=== PATIENT | male | born 1965 | race Caucasian/White ===

== ENCOUNTER 2020-11-29 21:05 | Emergency (ER) | payer BC, OTHER ==
[~2020-11-29] VITALS: Ht 170.2 cm; Wt 152.9 kg
[~2020-11-29 21:05] MED LIST: BUPR300T49 PO; HYDR25TA6 PO; LEVO50TA5 PO; LOSA100T14 PO; POTA20TA14 PO; PRAV10TA2 PO; QUET25TA7 PO
--- NOTE | 2020-11-29 21:38 | NUR ---
PT STATES HE HAS BEEN FEELING FATIGUED SINCE WEDNESDAY, HAS BEEN HAVING A FEVER, SOB, DIARRHEA, AND HEAD ACHES, PT PUT ON 2 LPM OF OXYGEN, PAINTER ASSISTANT AND PULSE OX, ALL NEEDS IN REACH, CALL LIGHT IN REACH, AT BEDSIDE
[2020-11-29 21:41] LABS: BASOPHILS % (AUTO) 1 % (0-1); EOSINOPHILS % (AUTO) 1 % (1-7); LYMPHOCYTES % (AUTO) 11 % (22-44); MEAN CORPUSCULAR HEMOGLOBIN 29.1 pg (27.5-34.5); MEAN CORPUSCULAR HGB CONC 34.5 g/dL (33.2-36.2); MEAN PLATELET VOLUME 7.9 fL (7.4-10.4); MONOCYTES % (AUTO) 12 % (2-9); NEUTROPHILS % (AUTO) 75 % (42-75); PLATELET COUNT 144 x10^3/uL (130-400); RED BLOOD COUNT 5.73 x10^6/uL (4.38-5.82); RED CELL DISTRIBUTION WIDTH 17.3 % (9.4-14.8)
[2020-11-29 21:42] LABS: ALANINE AMINOTRANSFERASE 54 U/L (12-78); ALBUMIN 3.6 g/dL (3.4-5.0); ANION GAP 5 mmol/L (5-15); CALCIUM 9.5 mg/dL (8.5-10.1); CHLORIDE 107 mmol/L (98-107); CREATININE 1.16 mg/dL (0.7-1.3); MD NO
[2020-11-29 21:46] LABS: ALKALINE PHOSPHATASE 99 U/L (45-117); BILIRUBIN,TOTAL 0.7 mg/dL (0.2-1.0); TOTAL PROTEIN 7.8 g/dL (6.4-8.2); TROPONIN I < 0.015 ng/mL (0.000-0.045)
[2020-11-29] MEDS ORDERED: PROCHLORPERAZINE 5 MG/ML, 2ML ONE (22:30)
[2020-11-29] MEDS ORDERED: SODIUM CHLORIDE 0.9% 1,000ML IVBOLUS ONE (22:30)
[2020-11-29] MEDS ORDERED: KETOROLAC 30 MG/1 ML ONE (22:30)
[2020-11-29] MEDS ORDERED: KETOROLAC 30 MG/1 ML IVPush ONE (22:30)
[2020-11-29] MEDS ORDERED: PROCHLORPERAZINE 5 MG/ML, 2ML IVPush ONE (22:30)
[2020-11-30 00:29] LABS: MICROSCOPIC AUTO
[2020-11-30 01:09] VITALS: BP 153/63
== END 2020-11-30 01:48 | disposition home or self-care (01) ==
LOC: ED 21:35
DX: J18.9 Pneumonia, unspecified organism (principal); Z20.822 Contact with and (suspected) exposure to COVID-19; R50.9 Fever, unspecified; M79.10 Myalgia, unspecified site; R19.7 Diarrhea, unspecified; R06.00 Dyspnea, unspecified; R00.0 Tachycardia, unspecified; I10 Essential (primary) hypertension; E11.9 Type 2 diabetes mellitus without complications; E78.00 Pure hypercholesterolemia, unspecified
CPT/HCPCS: 36415; 71045; 80053; 81001; 83880; 84484; 85025; 87086; 93005; 96361; 96374; 96375; 99285; J0780; J1885; J7030; U0003; U0005

== ENCOUNTER 2020-12-03 11:32 | Inpatient (IN) | payer OTHER ==
[~2020-12-03] VITALS: Ht 172.7 cm; Wt 161.9 kg
--- NOTE | 2020-12-03 12:01 | NUR ---
DR ANDERSON AT BEDSIDE TO CHIVO PT. CONTACT WITH PT, 55 YR OLD MALE HERE WITH C/O "WE WERE HERE EMI NIGHT, HE WAS HAVING SOB, CONGESTION AND IT WAS UNCOMFORTABLE TO BREATH. HE SAYS IT HURTS RIGHT ACROSS HERE (UPPER ABD) HAS HAD DIARRHEA FOR A WEEK AND SOME NAUSEA. HIS TEMP HAS GONE UP" LAST HAD IBUPROFEN (600MG) AT AROUND 0700 THIS AM. PT MARCIE AT BEDSIDE. PT ON PULSE OX MONITOR AND AUTO BP CUFF.
[2020-12-03 12:22] LABS: MICROSCOPIC AUTO
[2020-12-03] MEDS ORDERED: SODIUM CHLORIDE 0.9% 1,000ML IVBOLUS ONE (12:30)
[2020-12-03] MEDS ORDERED: ACETAMINOPHEN 500 MG TABLET PO ONE (12:30)
[2020-12-03 12:37] LABS: MEAN CORPUSCULAR HEMOGLOBIN 28.9 pg (27.5-34.5); MEAN CORPUSCULAR HGB CONC 34.7 g/dL (33.2-36.2); MEAN PLATELET VOLUME 7.9 fL (7.4-10.4); PLATELET COUNT 74 x10^3/uL (130-400); RED BLOOD COUNT 5.15 x10^6/uL (4.38-5.82); RED CELL DISTRIBUTION WIDTH 17.6 % (9.4-14.8)
[2020-12-03] MEDS ORDERED: ACETAMINOPHEN 500 MG TABLET ONE (12:39)
[2020-12-03 12:49] LABS: ALANINE AMINOTRANSFERASE 63 U/L (12-78); ANION GAP 9 mmol/L (5-15); CALCIUM 9.4 mg/dL (8.5-10.1); CHLORIDE 103 mmol/L (98-107)
[2020-12-03 12:52] LABS: ALKALINE PHOSPHATASE 96 U/L (45-117); BILIRUBIN,TOTAL 0.9 mg/dL (0.2-1.0); TOTAL PROTEIN 6.8 g/dL (6.4-8.2)
--- NOTE | 2020-12-03 12:53 | NUR ---
REPORT TO CAMACHO ORTA
[2020-12-03] MEDS ORDERED: SODIUM CHLORIDE FLUSH 10ML SYR IVF ONE (13:00)
--- NOTE | 2020-12-03 13:22 | NUR ---
PT STATES HE'S DOING OKAY, STATES HE USUALLY FEELS BETTER AFTER HE GETS IVF. STATES HE "HASN'T BEEN ABLE TO KEEP ANYTHING DOWN". BOLUS INFUSING NOW. SITTING AT EDGE OF BED FOR COMFORT. AT BS. UPDATED PT ON POC.
[2020-12-03 13:40] LABS: ANISOCYTOSIS 1+; BAND#(MANUAL) 0.99 x10^3/uL; BANDS%(MANUAL) 13 % (0-7); EOS#(MANUAL) 0.08 x10^3/uL (0.0-0.4); EOS% (MANUAL) 1 % (1-7); LYMPH#(MANUAL) 1.29 x10^3/uL (1-3.4); LYMPHS% (MANUAL) 17 % (22-44); METAMYELOCYTES% (MANUAL) 4 % (0-1); MONOS#(MANUAL) 0.99 x10^3/uL (0.3-2.7); MONOS% (MANUAL) 13 % (2-9); SEG#(MANUAL) 3.95 x10^3/uL (1.8-6.8); SEGS% (MANUAL) 52 % (42-75)
[2020-12-03 13:41] LABS: POLYCHROMASIA 1+
[2020-12-03 13:42] LABS: <PLATELET ESTIMATE> DECREASED; <PLT MORPHOLOGY> NORMAL PLT MORPH
--- NOTE | 2020-12-03 14:08 | NUR ---
SPO2 DROPS TO 88% WHEN PT RESTING ON BACK IN [facility]. STATES PT HAS SLEEP APNEA. O2 APPLIED AT 2L NC, SPO2 IMPROVED TO 96%.
--- NOTE | 2020-12-03 14:48 | NUR ---
PT TO CT VIA [facility] NOW.
[2020-12-03] MEDS ORDERED: OMNIPAQUE 350 MG/ML, 100ML BOTTLE ONE (15:08)
--- NOTE | 2020-12-03 15:12 | NUR ---
PT RETURNS FROM CT.
--- NOTE | 2020-12-03 15:18 | NUR ---
ERP AT BS TO TALK TO PT ABOUT CTA RESULTS AND PLAN FOR ADMISSION.
[2020-12-03] MEDS ORDERED: TAMS-11 PO (15:38)
[2020-12-03] MEDS ORDERED: ESCI20TA8 PO (15:38)
[2020-12-03] MEDS ORDERED: BUSP5TAB2 PO (15:38)
[2020-12-03] MEDS ORDERED: MELA10TA PO (15:38)
[2020-12-03] MEDS ORDERED: EMPA1TAB15 PO (15:38)
[2020-12-03] MEDS ORDERED: SITA100T PO (15:38)
[2020-12-03] MEDS ORDERED: MULT-464 PO (15:38)
[2020-12-03] MEDS ORDERED: METH36TA19 PO ×2 (15:48→21:03)
--- NOTE | 2020-12-03 15:48 | NUR ---
PT MOVED TO CHAIR PER HIS REQUEST. SOB NOTED WHEN PT SPEAKING/MOVING AROUND. O2 IN PLACE AT 2L NC. ADMITTING MD AT NOW.
[2020-12-03] MEDS ORDERED: ENALAPRILAT 1.25 MG/ML, 2ML IVPush PRN (16:00)
[2020-12-03] MEDS ORDERED: ONDANSETRON 2MG/ML, 2ML IVPush PRN (16:00)
[2020-12-03] MEDS ORDERED: POLYETHYLENE GLYCOL 17 GM PACKET PO PRN (16:00)
[2020-12-03] MEDS ORDERED: GUAIFENESIN/DM 200-20MG, 10ML UDC PO PRN (16:00)
[2020-12-03] MEDS ORDERED: OXYcodone/APAP 5/325MG TABLET PO PRN (16:00)
[2020-12-03] MEDS ORDERED: CEFTRIAXONE 2 GM in DEXTROSE 5% 50 ML IVPB SCH (16:30)
--- NOTE | 2020-12-03 16:42 | NUR ---
CALLED DR. SANCHEZ TO ASK WHY BLOOD THINNERS HAVEN'T BEEN ORDERED. PER ADMITTING MD, WILL GET REPEAT PLT COUNT FIRST. LAB AT BS NOW.
[2020-12-03] MEDS ORDERED: HEPARIN 5,000 UNITS/ML, 1ML IV ONE (17:30)
[2020-12-03 17:41] LABS: HCT (SEDRATE) 43.6 % (39.2-51.8)
[2020-12-03] MEDS: LACTATED RINGERS 1,000 ML IV SCH (17:56)
[2020-12-03] MEDS: HEPARIN 25,000 UNITS/250ML PMX 250 ML IV PRN (18:38)
[2020-12-03 19:32] VITALS: BP 142/64
[2020-12-03] MEDS: MELATONIN 5 MG TABLET PO PRN (20:46)
[2020-12-03] MEDS: QUETIAPINE 25MG TABLET PO SCH (20:46)
[2020-12-03] MEDS ORDERED: BUPR-173 PO (21:01)
[2020-12-03] MEDS ORDERED: QUET100T4 PO (21:01)
[2020-12-03 21:24] LABS: MEAN CORPUSCULAR HEMOGLOBIN 28.9 pg (27.5-34.5); MEAN CORPUSCULAR HGB CONC 34.5 g/dL (33.2-36.2); MEAN PLATELET VOLUME 8.4 fL (7.4-10.4); PLATELET COUNT 69 x10^3/uL (130-400); RED BLOOD COUNT 4.91 x10^6/uL (4.38-5.82); RED CELL DISTRIBUTION WIDTH 17.7 % (9.4-14.8)
[2020-12-03 21:57] LABS: BASOPHILS % (AUTO) 1 % (0-1); EOSINOPHILS % (AUTO) 1 % (1-7); LYMPHOCYTES % (AUTO) 21 % (22-44); MONOCYTES % (AUTO) 10 % (2-9); NEUTROPHILS % (AUTO) 67 % (42-75)
[2020-12-04] MEDS: ACETAMINOPHEN 325 MG TABLET PO PRN ×3 (00:13→17:01)
[2020-12-04 00:56] VITALS: BP 151/89
[2020-12-04 01:09] LABS: MICROSCOPIC AUTO
[2020-12-04 01:18] LABS: MEAN CORPUSCULAR HEMOGLOBIN 28.6 pg (27.5-34.5); MEAN PLATELET VOLUME 8.1 fL (7.4-10.4); PLATELET COUNT 73 x10^3/uL (130-400); RED BLOOD COUNT 4.97 x10^6/uL (4.38-5.82); RED CELL DISTRIBUTION WIDTH 17.8 % (9.4-14.8)
[2020-12-04 01:40] LABS: ANISOCYTOSIS 1+; BAND#(MANUAL) 1.11 x10^3/uL; BANDS%(MANUAL) 17 % (0-7); EOS#(MANUAL) 0.26 x10^3/uL (0.0-0.4); EOS% (MANUAL) 4 % (1-7); LYMPHS% (MANUAL) 23 % (22-44); METAMYELOCYTES# (MANUAL) 0.33 x10^3/uL (0-0); METAMYELOCYTES% (MANUAL) 5 % (0-1); MONOS#(MANUAL) 0.72 x10^3/uL (0.3-2.7); MONOS% (MANUAL) 11 % (2-9); MYELOCYTES# (MANUAL) 0.13 x10^3/uL (0-0); MYELOCYTES% (MANUAL) 2 % (0-0); POLYCHROMASIA 1+; REACTIVE LYMPHS # (MANUAL) 0.13 x10^3/uL (0-0); REACTIVE LYMPHS % (MANUAL) 2 % (0-0); SEG#(MANUAL) 2.34 x10^3/uL (1.8-6.8); SEGS% (MANUAL) 36 % (42-75)
[2020-12-04 01:41] LABS: PMNS WITH VACUOLES 1+
[2020-12-04 01:42] LABS: TOXIC GRAN 1+
[2020-12-04 01:45] LABS: <PLATELET ESTIMATE> DECREASED; <PLT MORPHOLOGY> NORMAL PLT MORPH
[2020-12-04] MEDS: HEPARIN 5,000 UNITS/ML, 1ML IV PRN ×3 (02:34→17:00)
[2020-12-04] MEDS: LEVOTHYROXINE 50 MCG TABLET PO SCH (05:31)
[2020-12-04 06:00] LABS: MEAN CORPUSCULAR HEMOGLOBIN 28.9 pg (27.5-34.5); MEAN CORPUSCULAR HGB CONC 34.2 g/dL (33.2-36.2); MEAN PLATELET VOLUME 8.2 fL (7.4-10.4); PLATELET COUNT 67 x10^3/uL (130-400); RED BLOOD COUNT 4.83 x10^6/uL (4.38-5.82); RED CELL DISTRIBUTION WIDTH 17.6 % (9.4-14.8)
[2020-12-04 06:10] LABS: ALBUMIN 2.7 g/dL (3.4-5.0); ANION GAP 5 mmol/L (5-15); CALCIUM 8.7 mg/dL (8.5-10.1); CHLORIDE 104 mmol/L (98-107)
[2020-12-04 06:14] LABS: ALANINE AMINOTRANSFERASE 63 U/L (12-78); ALKALINE PHOSPHATASE 81 U/L (45-117); BILIRUBIN,TOTAL 0.6 mg/dL (0.2-1.0); CREATININE 0.76 mg/dL (0.7-1.3); TOTAL PROTEIN 6.3 g/dL (6.4-8.2)
[2020-12-04 06:40] LABS: ANISOCYTOSIS 1+; BAND#(MANUAL) 0.95 x10^3/uL; BANDS%(MANUAL) 14 % (0-7); EOS#(MANUAL) 0.07 x10^3/uL (0.0-0.4); EOS% (MANUAL) 1 % (1-7); LYMPH#(MANUAL) 1.36 x10^3/uL (1-3.4); LYMPHS% (MANUAL) 20 % (22-44); METAMYELOCYTES# (MANUAL) 0.14 x10^3/uL (0-0); METAMYELOCYTES% (MANUAL) 2 % (0-1); MONOS#(MANUAL) 0.61 x10^3/uL (0.3-2.7); MONOS% (MANUAL) 9 % (2-9); REACTIVE LYMPHS # (MANUAL) 0.07 x10^3/uL (0-0); REACTIVE LYMPHS % (MANUAL) 1 % (0-0); SEGS% (MANUAL) 53 % (42-75)
[2020-12-04 06:41] LABS: <PLATELET ESTIMATE> DECREASED; <PLT MORPHOLOGY> NORMAL PLT MORPH; POLYCHROMASIA 1+
[2020-12-04] MEDS ORDERED: PIPERACILLIN/TAZO 4.5 GM in DEXTROSE 5% 100 ML IVPB SCH (07:00)
[2020-12-04 07:18] VITALS: BP 159/93
[2020-12-04] MEDS: ESCITALOPRAM 10MG TABLET PO SCH (08:24)
[2020-12-04] MEDS: TAMSULOSIN 0.4 MG CAP.ER.24H PO SCH (08:24)
[2020-12-04] MEDS: BUSPIRONE 5 MG TABLET PO SCH (08:25)
[2020-12-04] MEDS: BUPROPION SR 100 MG TABLET PO SCH ×2 (08:47→20:56)
[2020-12-04] MEDS: LACTATED RINGERS 1,000 ML IV SCH (08:48)
[2020-12-04] MEDS ORDERED: BUPROPION SR 150 MG TABLET PO SCH (09:00)
[2020-12-04 09:14] LABS: BASOPHILS % (AUTO) 1 % (0-1); EOSINOPHILS % (AUTO) 1 % (1-7); LYMPHOCYTES % (AUTO) 19 % (22-44); MEAN CORPUSCULAR HEMOGLOBIN 28.5 pg (27.5-34.5); MEAN CORPUSCULAR HGB CONC 34.2 g/dL (33.2-36.2); MEAN PLATELET VOLUME 8.3 fL (7.4-10.4); MONOCYTES % (AUTO) 8 % (2-9); NEUTROPHILS % (AUTO) 72 % (42-75); PLATELET COUNT 71 x10^3/uL (130-400); RED BLOOD COUNT 4.86 x10^6/uL (4.38-5.82); RED CELL DISTRIBUTION WIDTH 17.6 % (9.4-14.8)
[2020-12-04] MEDS ORDERED: POTASSIUM CHLORIDE 20 MEQ TAB.ER.PRT PO ONE (10:00)
[2020-12-04 11:20] VITALS: BP 146/78
[2020-12-04] MEDS: METRONIDAZOLE PMX 500MG/100ML 100 ML IV SCH ×3 (11:21→23:49)
[2020-12-04] MEDS: K-PHOS NEUTRAL 250MG TAB PO SCH ×2 (11:22→20:56)
[2020-12-04] MEDS ORDERED: OMNIPAQUE 350 MG/ML, 150 ML BOTTLE ONE (12:34)
[2020-12-04] MEDS: HEPARIN 25,000 UNITS/250ML PMX 250 ML IV PRN (13:04)
[2020-12-04] MEDS: CEFEPIME 2 GM in DEXTROSE 5% 100 ML IV SCH ×2 (14:08→22:51)
[2020-12-04 14:15] VITALS: BP 142/106
[2020-12-04 16:14] LABS: BASOPHILS % (AUTO) 1 % (0-1); EOSINOPHILS % (AUTO) 1 % (1-7); LYMPHOCYTES % (AUTO) 20 % (22-44); MEAN CORPUSCULAR HEMOGLOBIN 28.6 pg (27.5-34.5); MEAN CORPUSCULAR HGB CONC 33.9 g/dL (33.2-36.2); MEAN PLATELET VOLUME 8.1 fL (7.4-10.4); MONOCYTES % (AUTO) 11 % (2-9); NEUTROPHILS % (AUTO) 67 % (42-75); PLATELET COUNT 68 x10^3/uL (130-400); RED BLOOD COUNT 4.81 x10^6/uL (4.38-5.82); RED CELL DISTRIBUTION WIDTH 17.4 % (9.4-14.8)
[2020-12-04 19:22] VITALS: BP 150/99
[2020-12-04] MEDS: QUETIAPINE 25MG TABLET PO SCH (20:56)
[2020-12-04] MEDS: MELATONIN 5 MG TABLET PO PRN (21:55)
[2020-12-04 23:28] LABS: MEAN CORPUSCULAR HEMOGLOBIN 28.9 pg (27.5-34.5); PLATELET COUNT 75 x10^3/uL (130-400); RED BLOOD COUNT 4.91 x10^6/uL (4.38-5.82); RED CELL DISTRIBUTION WIDTH 17.7 % (9.4-14.8)
[2020-12-05 00:10] LABS: BAND#(MANUAL) 0.92 x10^3/uL; BANDS%(MANUAL) 14 % (0-7); BASOS#(MANUAL) 0.07 x10^3/uL (0-0.1); BASOS% (MANUAL) 1 % (0-1); LYMPH#(MANUAL) 0.99 x10^3/uL (1-3.4); LYMPHS% (MANUAL) 15 % (22-44); METAMYELOCYTES# (MANUAL) 0.13 x10^3/uL (0-0); METAMYELOCYTES% (MANUAL) 2 % (0-1); MONOS% (MANUAL) 3 % (2-9); SEG#(MANUAL) 4.29 x10^3/uL (1.8-6.8); SEGS% (MANUAL) 65 % (42-75)
[2020-12-05 00:11] LABS: <PLATELET ESTIMATE> DECREASED; <PLT MORPHOLOGY> NORMAL PLT MORPH; ANISOCYTOSIS 1+
[2020-12-05] MEDS: HEPARIN 5,000 UNITS/ML, 1ML IV PRN ×2 (00:36→20:04)
[2020-12-05 01:42] VITALS: BP 169/70
[2020-12-05 03:25] LABS: BASOPHILS % (AUTO) 1 % (0-1); EOSINOPHILS % (AUTO) 1 % (1-7); LYMPHOCYTES % (AUTO) 16 % (22-44); MEAN CORPUSCULAR HEMOGLOBIN 28.7 pg (27.5-34.5); MEAN PLATELET VOLUME 8.2 fL (7.4-10.4); MONOCYTES % (AUTO) 9 % (2-9); NEUTROPHILS % (AUTO) 73 % (42-75); PLATELET COUNT 75 x10^3/uL (130-400); RED BLOOD COUNT 4.55 x10^6/uL (4.38-5.82); RED CELL DISTRIBUTION WIDTH 17.7 % (9.4-14.8)
[2020-12-05] MEDS: HEPARIN 25,000 UNITS/250ML PMX 250 ML IV PRN ×2 (04:28→17:34)
[2020-12-05] MEDS: METRONIDAZOLE PMX 500MG/100ML 100 ML IV SCH ×3 (04:57→17:30)
[2020-12-05] MEDS: LEVOTHYROXINE 50 MCG TABLET PO SCH (06:10)
[2020-12-05 06:20] LABS: MEAN CORPUSCULAR HEMOGLOBIN 29.3 pg (27.5-34.5); MEAN CORPUSCULAR HGB CONC 34.8 g/dL (33.2-36.2); MEAN PLATELET VOLUME 7.8 fL (7.4-10.4); PLATELET COUNT 73 x10^3/uL (130-400); RED BLOOD COUNT 4.29 x10^6/uL (4.38-5.82); RED CELL DISTRIBUTION WIDTH 18.1 % (9.4-14.8)
[2020-12-05] MEDS: CEFEPIME 2 GM in DEXTROSE 5% 100 ML IV SCH ×4 (06:24→22:46)
[2020-12-05 06:41] LABS: BAND#(MANUAL) 0.84 x10^3/uL; BANDS%(MANUAL) 9 % (0-7); EOS#(MANUAL) 0.19 x10^3/uL (0.0-0.4); EOS% (MANUAL) 2 % (1-7); LYMPH#(MANUAL) 1.58 x10^3/uL (1-3.4); LYMPHS% (MANUAL) 17 % (22-44); MONOS#(MANUAL) 0.74 x10^3/uL (0.3-2.7); MONOS% (MANUAL) 8 % (2-9); MYELOCYTES# (MANUAL) 0.09 x10^3/uL (0-0); MYELOCYTES% (MANUAL) 1 % (0-0); SEG#(MANUAL) 5.86 x10^3/uL (1.8-6.8); SEGS% (MANUAL) 63 % (42-75)
[2020-12-05 06:42] LABS: ANISOCYTOSIS 1+; POLYCHROMASIA 1+
[2020-12-05 06:44] LABS: <PLATELET ESTIMATE> DECREASED; <PLT MORPHOLOGY> NORMAL PLT MORPH; PMNS WITH VACUOLES 1+
[2020-12-05 06:59] VITALS: BP 150/82
[2020-12-05] MEDS: LACTATED RINGERS 1,000 ML IV SCH (09:15)
[2020-12-05] MEDS: K-PHOS NEUTRAL 250MG TAB PO SCH ×3 (09:16→21:40)
[2020-12-05] MEDS: LOSARTAN 50MG TABLET PO SCH (09:16)
[2020-12-05] MEDS: BUPROPION SR 100 MG TABLET PO SCH ×2 (09:16→21:40)
[2020-12-05] MEDS: BUSPIRONE 5 MG TABLET PO SCH (09:16)
[2020-12-05] MEDS: ESCITALOPRAM 10MG TABLET PO SCH (09:16)
[2020-12-05] MEDS: TAMSULOSIN 0.4 MG CAP.ER.24H PO SCH (09:16)
[2020-12-05 14:47] VITALS: BP 131/75
[2020-12-05 15:21] LABS: MEAN CORPUSCULAR HEMOGLOBIN 28.9 pg (27.5-34.5); MEAN CORPUSCULAR HGB CONC 34.1 g/dL (33.2-36.2); MEAN PLATELET VOLUME 8.2 fL (7.4-10.4); PLATELET COUNT 76 x10^3/uL (130-400); RED CELL DISTRIBUTION WIDTH 17.9 % (9.4-14.8)
[2020-12-05 15:49] LABS: BAND#(MANUAL) 0.57 x10^3/uL; BANDS%(MANUAL) 7 % (0-7); BASOS#(MANUAL) 0.24 x10^3/uL (0-0.1); BASOS% (MANUAL) 3 % (0-1); LYMPH#(MANUAL) 1.38 x10^3/uL (1-3.4); LYMPHS% (MANUAL) 17 % (22-44); METAMYELOCYTES# (MANUAL) 0.16 x10^3/uL (0-0); METAMYELOCYTES% (MANUAL) 2 % (0-1); MONOS#(MANUAL) 0.73 x10^3/uL (0.3-2.7); MONOS% (MANUAL) 9 % (2-9); MYELOCYTES# (MANUAL) 0.08 x10^3/uL (0-0); MYELOCYTES% (MANUAL) 1 % (0-0); SEG#(MANUAL) 4.94 x10^3/uL (1.8-6.8); SEGS% (MANUAL) 61 % (42-75)
[2020-12-05 15:50] LABS: <PLATELET ESTIMATE> DECREASED; <PLT MORPHOLOGY> NORMAL PLT MORPH; ANISOCYTOSIS 1+; PMNS WITH VACUOLES 1+; POLYCHROMASIA 1+
[2020-12-05 18:24] VITALS: BP 145/80
[2020-12-05 20:29] LABS: STOOL FOR LEUKOCYTES RARE (0-1/HPF) (NEGATIVE)
[2020-12-05 20:52] LABS: OCCULT BLOOD NEGATIVE (NEGATIVE)
[2020-12-05] MEDS: QUETIAPINE 25MG TABLET PO SCH (21:40)
[2020-12-05] MEDS: MELATONIN 5 MG TABLET PO PRN (21:40)
[2020-12-05 21:49] LABS: MEAN CORPUSCULAR HEMOGLOBIN 28.7 pg (27.5-34.5); MEAN CORPUSCULAR HGB CONC 33.6 g/dL (33.2-36.2); MEAN PLATELET VOLUME 8.4 fL (7.4-10.4); PLATELET COUNT 78 x10^3/uL (130-400); RED BLOOD COUNT 4.38 x10^6/uL (4.38-5.82); RED CELL DISTRIBUTION WIDTH 17.8 % (9.4-14.8)
[2020-12-05 22:37] LABS: ANISOCYTOSIS 1+; BAND#(MANUAL) 0.18 x10^3/uL; BANDS%(MANUAL) 2 % (0-7); EOS#(MANUAL) 0.18 x10^3/uL (0.0-0.4); EOS% (MANUAL) 2 % (1-7); LYMPHS% (MANUAL) 9 % (22-44); METAMYELOCYTES# (MANUAL) 0.09 x10^3/uL (0-0); METAMYELOCYTES% (MANUAL) 1 % (0-1); MONOS#(MANUAL) 0.45 x10^3/uL (0.3-2.7); MONOS% (MANUAL) 5 % (2-9); MYELOCYTES# (MANUAL) 0.09 x10^3/uL (0-0); MYELOCYTES% (MANUAL) 1 % (0-0); POLYCHROMASIA 1+; REACTIVE LYMPHS # (MANUAL) 0.45 x10^3/uL (0-0); REACTIVE LYMPHS % (MANUAL) 5 % (0-0); SEG#(MANUAL) 6.68 x10^3/uL (1.8-6.8); SEGS% (MANUAL) 75 % (42-75)
[2020-12-05 22:38] LABS: <PLATELET ESTIMATE> DECREASED; PMNS WITH VACUOLES 1+
[2020-12-05 22:39] LABS: LARGE PLATELETS 1+
[2020-12-05] MEDS: ACETAMINOPHEN 325 MG TABLET PO PRN (22:44)
[2020-12-06] MEDS: METRONIDAZOLE PMX 500MG/100ML 100 ML IV SCH ×6 (00:02→23:54)
[2020-12-06 01:03] VITALS: BP 140/79
[2020-12-06] MEDS: LACTATED RINGERS 1,000 ML IV SCH (02:06)
[2020-12-06] MEDS: LEVOTHYROXINE 50 MCG TABLET PO SCH (05:47)
[2020-12-06] MEDS: HEPARIN 25,000 UNITS/250ML PMX 250 ML IV PRN ×2 (06:14→19:01)
[2020-12-06] MEDS: CEFEPIME 2 GM in DEXTROSE 5% 100 ML IV SCH ×3 (07:43→23:15)
[2020-12-06 07:45] VITALS: BP 132/75
[2020-12-06] MEDS: TAMSULOSIN 0.4 MG CAP.ER.24H PO SCH (09:01)
[2020-12-06] MEDS: BUPROPION SR 100 MG TABLET PO SCH ×2 (09:02→20:27)
[2020-12-06] MEDS: BUSPIRONE 5 MG TABLET PO SCH (09:02)
[2020-12-06] MEDS: ESCITALOPRAM 10MG TABLET PO SCH (09:02)
[2020-12-06 10:06] LABS: CLOSTRIDIUM DIFFICILE ANTIGEN NEGATIVE; CLOSTRIDIUM DIFFICILE TOXIN NEGATIVE (Negative)
[2020-12-06 13:14] VITALS: BP 138/75
[2020-12-06] MEDS: ACETAMINOPHEN 325 MG TABLET PO PRN ×2 (15:16→20:51)
[2020-12-06 19:20] VITALS: BP 141/86
[2020-12-06] MEDS: QUETIAPINE 25MG TABLET PO SCH (20:27)
[2020-12-06] MEDS: MELATONIN 5 MG TABLET PO PRN (20:52)
[2020-12-07 02:24] VITALS: BP 162/83
[2020-12-07] MEDS: METRONIDAZOLE PMX 500MG/100ML 100 ML IV SCH (05:25)
[2020-12-07] MEDS: LEVOTHYROXINE 50 MCG TABLET PO SCH (05:26)
[2020-12-07] MEDS: HEPARIN 25,000 UNITS/250ML PMX 250 ML IV PRN (06:01)
[2020-12-07] MEDS: HEPARIN 5,000 UNITS/ML, 1ML IV PRN (06:05)
[2020-12-07] MEDS: CEFEPIME 2 GM in DEXTROSE 5% 100 ML IV SCH (06:55)
[2020-12-07 08:10] VITALS: BP 166/95
[2020-12-07] MEDS: TAMSULOSIN 0.4 MG CAP.ER.24H PO SCH (09:41)
[2020-12-07] MEDS: BUPROPION SR 100 MG TABLET PO SCH (09:41)
[2020-12-07] MEDS: ESCITALOPRAM 10MG TABLET PO SCH (09:41)
[2020-12-07] MEDS: LOSARTAN 50MG TABLET PO SCH (09:41)
[2020-12-07] MEDS: BUSPIRONE 5 MG TABLET PO SCH (09:41)
[2020-12-07] MEDS ORDERED: LOPERAMIDE 2 MG CAPSULE PO PRN ×2 (10:30)
[2020-12-07] MEDS ORDERED: POTASSIUM CHLORIDE 20 MEQ TAB.ER.PRT PO SCH (10:30)
[2020-12-07] MEDS ORDERED: CEFTRIAXONE 2 GM in DEXTROSE 5% 50 ML IVPB SCH (11:00)
[2020-12-07] MEDS ORDERED: RIVA15TA PO (11:14)
[2020-12-07] MEDS ORDERED: RIVA20TA PO (11:14)
[2020-12-07] MEDS ORDERED: CIPR500T87 PO (11:16)
[2020-12-07] MEDS ORDERED: LOPE-114 PO (11:17)
[2020-12-07] MEDS: ACETAMINOPHEN 325 MG TABLET PO PRN (12:28)
[2020-12-07] MEDS ORDERED: RIVAROXABAN 15 MG TABLET PO SCH ×2 (12:30→17:00)
== END 2020-12-07 15:43 | disposition home or self-care (01) | DRG 871 ==
LOC: ED 12:22 → EDIP 15:15 → 4EST 17:12
PROVIDERS: ADMIT Internal Medicine; ATTEND Hospitalist
DX: A02.1 Salmonella sepsis (principal); I26.99 Other pulmonary embolism without acute cor pulmonale; J96.01 Acute respiratory failure with hypoxia; Z68.43 Body mass index [BMI] 50.0-59.9, adult; D69.6 Thrombocytopenia, unspecified; E03.9 Hypothyroidism, unspecified; E11.65 Type 2 diabetes mellitus with hyperglycemia; E66.01 Morbid (severe) obesity due to excess calories; E78.00 Pure hypercholesterolemia, unspecified; F32.9 Major depressive disorder, single episode, unspecified; F41.1 Generalized anxiety disorder; F40.240 Claustrophobia; G47.33 Obstructive sleep apnea (adult) (pediatric); I10 Essential (primary) hypertension; Z20.822 Contact with and (suspected) exposure to COVID-19; Z91.19 Patient's noncompliance with other medical treatment and regimen; R74.01 Elevation of levels of liver transaminase levels
CPT/HCPCS: 36415; 84145; 87046; 89055; 96360; 99291; C8929; 70450; 71275; 74177; 80053; 81001; 82272; 82728; 82962; 83036; 83605; 83615; 83735; 84100; 84443; 85025; 85049; 85520; 85651; 86140; 87040; 87077; 87184; 87186; 87324; 93005; G0378; J0696; J1644; J2405; J2543; Q9957; Q9967; J7030; J7120

== ENCOUNTER 2021-02-26 11:30 | Emergency (ER) | payer OTHER ==
[~2021-02-26] VITALS: Ht 172.7 cm; Wt 156.0 kg
[~2021-02-26 11:30] MED LIST changes: +BUPR-173 PO; +BUSP5TAB2 PO; +CIPR500T87 PO; +EMPA1TAB15 PO; +ESCI20TA8 PO; +LOPE-114 PO; +MELA10TA PO; +METH36TA19 PO; +MULT-464 PO; +QUET100T4 PO; +RIVA15TA PO; +RIVA20TA PO; +SITA100T PO; +TAMS-11 PO
[2021-02-26 13:10] LABS: BASOPHILS % (AUTO) 1 % (0-1); EOSINOPHILS % (AUTO) 3 % (1-7); LYMPHOCYTES % (AUTO) 14 % (22-44); MEAN CORPUSCULAR HGB CONC 33.9 g/dL (33.2-36.2); MEAN PLATELET VOLUME 7.9 fL (7.4-10.4); MONOCYTES % (AUTO) 8 % (2-9); NEUTROPHILS % (AUTO) 74 % (42-75); PLATELET COUNT 177 x10^3/uL (130-400); RED BLOOD COUNT 5.51 x10^6/uL (4.38-5.82); RED CELL DISTRIBUTION WIDTH 17.3 % (9.4-14.8)
[2021-02-26 13:17] LABS: ALANINE AMINOTRANSFERASE 53 U/L (12-78); ALBUMIN 3.3 g/dL (3.4-5.0); ANION GAP 3 mmol/L (5-15); CALCIUM 9.8 mg/dL (8.5-10.1); CHLORIDE 101 mmol/L (98-107); CREATININE 0.93 mg/dL (0.7-1.3)
[2021-02-26 13:22] LABS: ALKALINE PHOSPHATASE 107 U/L (45-117); BILIRUBIN,TOTAL 0.4 mg/dL (0.2-1.0); TOTAL PROTEIN 7.6 g/dL (6.4-8.2); TROPONIN I < 0.015 ng/mL (0.000-0.045)
--- NOTE | 2021-02-26 16:52 | NUR ---
PT TO ROOM 36 W/ C/O SOB FOR A WHILE NOW. PT WAS SEEN AND DX W/ MULTIPLE PE'S. PT WAS PLACED ON ELIQUIS AND PT STATES HE HAS BEEN TAKING IT DAILY W/O INCREASING RELIEF SINCE HE STARTED TAKING IT. PT BREATHING RAPIDLY. SATING 94% RA. STATES HX ANXIETY. PT RESTING ON GURNEY. VSS. STUDENT AT BEDSIDE FOR CHIVO.
[2021-02-26 17:25] VITALS: BP 140/90
--- NOTE | 2021-02-26 17:26 | NUR ---
PT RESTING ON GURNEY. NADN. FLORES.
--- NOTE | 2021-02-26 17:49 | NUR ---
SPOKE W/ ERP DR. ROSS WHO STATES THERE IS NO NEED FOR D-DIMER OR CTA AT THIS TIME PT HAS KNOWN PE'S.
== END 2021-02-26 18:12 | disposition home or self-care (01) ==
LOC: ED 13:49
DX: R06.00 Dyspnea, unspecified (principal); R05 Cough; R06.02 Shortness of breath; R94.31 Abnormal electrocardiogram [ECG] [EKG]; I10 Essential (primary) hypertension; E11.9 Type 2 diabetes mellitus without complications; Z90.89 Acquired absence of other organs
CPT/HCPCS: 36415; 71045; 80053; 83880; 84484; 85025; 93005; 99285